=== PATIENT | male | born 1960 | race Caucasian/White ===

== ENCOUNTER 2021-05-30 12:19 | Outpatient (CLI) | payer MEDICARE, MEDICAID, SELFPAY ==
[2021-05-30 12:58] LABS: Ammonia 119 umol/L (16-60)
[2021-05-30 13:15] LABS: Alanine Aminotransferase 17 U/L (0-41); Albumin Level 2.5 g/dL (3.5-5.2); Alkaline Phosphatase 101 IU/L (40-130); Anion Gap 18.5 (5-19); Aspartate Amino Transferase 27 U/L (0-40); Blood Urea Nitrogen 68 mg/dL (8-23); Calcium 8.3 mg/dL (8.5-10.5); Carbon Dioxide 23 mmol/L (22-29); Chloride 97 mmol/L (98-107); Globulin 3.6 g/dL (1.3-4.6); Glomerular Filtration Rate 33.9 mL/min (90-130); Glucose 137 mg/dL (65-115); Osmolality Calculated 302 mOsm/kg (285-295); Potassium 3.5 mmol/L (3.5-5.1); Sodium 135 mmol/L (136-145); Total Bilirubin 3.2 mg/dL (0.15-1.2); Total Protein 6.1 g/dL (6.6-8.7)
== END 2021-05-30 12:20 | disposition home or self-care (01) ==
LOC: LAB 12:24
PROVIDERS: PCP Internal Medicine; Visit Provider Internal Medicine
DX: K75.81 Nonalcoholic steatohepatitis (NASH) (principal)
CPT/HCPCS: 80053; 82140

== ENCOUNTER 2021-05-31 23:05 | Inpatient (IN) | payer MEDICARE, MEDICAID, SELFPAY ==
--- NOTE | 2021-05-31 23:09 | XRR_ITS ---
PROCEDURE INFORMATION: Exam: XR Chest Exam date and time: 05/31/2021 11:09 PM Age: 61 years old Clinical indication: Other: Possible stroke; Additional info: Severe ARMENTA, amirah of left hand, possible stroke, AMS TECHNIQUE: Imaging protocol: XR of the chest. Views: 1 view. COMPARISON: No relevant prior studies available. FINDINGS: Lungs: Bibasilar atelectasis is appreciated. Pleural spaces: A small left pleural effusion is noted. No pneumothorax is seen. Heart/Mediastinum: The heart is normal in size. Changes of CABG are noted. Diaphragm: The right hemidiaphragm is prominently elevated, possibly paralyzed. Bones/joints: Unremarkable. XR/XR chest 1V portable [id number] IMPRESSION: 1. Bibasilar atelectasis and small left pleural effusion. 2. Prominent right hemidiaphragm elevation raise the possibility of paralysis. Radiation Dose CTDIVOL = (mGy): DLP = (mGy-cm)
--- NOTE | 2021-05-31 23:09 | CTR_ITS ---
PROCEDURE INFORMATION: Exam: CT Head Without Contrast Exam date and time: 05/31/2021 11:09 PM Age: 61 years old Clinical indication: Pain; Altered mental status/memory loss; Headache; Additional info: Severe ARMENTA, AMS, seizure activity, amirah of left hand. TECHNIQUE: Imaging protocol: Computed tomography of the head without contrast. Radiation optimization: All CT scans at this facility use at least one of these dose optimization techniques: automated exposure control; mA and/or kV adjustment per patient size (includes targeted exams where dose is matched to clinical indication); or iterative reconstruction. Other technique: STROKE PROTOCOL was implemented. COMPARISON: No relevant prior studies available. RADIATION DOSE METRICS: Total DLP (mGy-cm): 848.67 FINDINGS: Brain: No hemorrhage or evidence of acute infarction. No mass effect. Cerebral ventricles: No ventriculomegaly. Paranasal sinuses: Visualized sinuses are unremarkable. No fluid levels. Mastoid air cells: Visualized mastoid air cells are well aerated. Bones/joints: Unremarkable. No acute fracture. Soft tissues: Unremarkable. CT/CT head wo con* [id number] IMPRESSION: No acute intracranial abnormality. ASSESSMENT: ASPECTS ([place] Stroke Program Early CT Score) is 10. Radiation Dose CTDIVOL = (mGy): DLP = 848.67 (mGy-cm)
--- NOTE | 2021-05-31 23:10 | ECG_ITS ---
[facility] Test Date: 2021-06-01 Pat Name: Beck Gloria Department: Room: Gender: Male Expeller Operator: : 1960 Requested By: Pj Pardo Order Number: [id number] Reading MD: Norma Payton M.D. Measurements Intervals [place] Rate: 67 P: 31 FL: 167 QRS: -8 QRSD: 118 T: 0 QT: 258 QTc: 273 Interpretive Statements SINUS RHYTHM MODERATE INTRAVENTRICULAR CONDUCTION DELAY [110+ ms QRS DURATION] NONSPECIFIC ST-T-WAVE ABNORMALITY No previous ECG available for comparison Electronically Signed On 06-01-2021 22:00:28 WASTEWATER ENGINEER by Norma Payton M.D. [email or web address] [employer] mentor [id number]
[2021-05-31 23:14] VITALS: BP 90/54; PULSE 61; RESP 6; TEMP 34.7; O2SAT 89
[2021-05-31 23:22] LABS: Glucose Point of Care 146 mg/dL (70-110)
--- NOTE | 2021-05-31 23:35 | ED_ITS ---
HPI - General Adult General: Chief complaint: General Medical Stated complaint: STROKE LIKE SX VS SEIZURES Time Seen by Provider: 05/31/21 23:09 Source: EMS Mode of arrival: EMS Limitations: altered mental status History of Present Illness: HPI narrative: 61-year-old male who is here from assisted with EMS. Per EMS starting at 10:00 patient complained of a headache then became unresponsive had a seizure at the assisted. Patient also had another seizure in route with EMS and was given 1 mg Ativan. Patient appears to be posturing eyes are looking up and to the right at this time. He is unresponsive will not follow any commands. No no known injuries. Per assisted he has a history of [place] and has been declining rapidly the last few months. 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 Essential (primary) hypertension Gout Unspecified protein-calorie malnutrition Surgical History (Updated 05/30/21 @ 15:58 by Lilian Castro APRN) History of coronary artery bypass graft Physical Exam Const: COMMON NORMALS: apparent distress and negative for patient oriented x3 GENERAL APPEARANCE: ill appearing HENMT: COMMON NORMALS: normocephalic and atraumatic HEAD & SCALP: normocephalic and atraumatic Eye: OTHER: Gazes upward pupils are both the same and responsive to light Neck/C-Spine: COMMON NORMALS: full ROM and supple Chest: COMMONS NORMALS: normal inspection of the chest and normal palpation of entire chest wall Resp: COMMON NORMALS: normal respiratory effort, No retractions, No use of accessory muscles and clear to auscultation bilaterally AUSCULTATION: clear to auscultation bilaterally Cardio: COMMON NORMALS: regular rate, regular rhythm and No murmurs present (Cardio) RATE: regular rate RHYTHM: regular rhythm GI: COMMON NORMALS: Normal to inspection, nondistended, normoactive bowel sounds present, Soft to palpation, non-tender and no masses PALPATION: Yes Soft to palpation Extremity: COMMON NORMALS: normal to inspection and full ROM Neuro: COMMON NORMALS: negative for patient oriented x3 and negative for moves all extremities Psych: COMMON NORMALS: negative for mental status grossly normal and negative for Normal thought process present THOUGHT PROCESS: abnormal Skin: COMMON NORMALS: no rashes or lesions noted and no wounds GENERAL SKIN EXAM: no rashes or lesions noted Procedures Intubation sedative: Etomidate Mg Given: 20 paralytic: Vecuronium Mg Given: 10 Laryngoscope: Nasir ET Tube Size: 8 ET Tube Uncuffed: No Tube Secured Depth (cm): 24 Tube Secured Location: lips Tube Placement Confirmation: visualized tube passing through cords, equal breath sounds bilaterally, no breath sounds over epigastrium and confirmation by capnometry Patient Tolerated Procedure: well Intubation Complications: none Course Vital Signs: Vital signs: Vital Signs Temperature 93.7 F L 06/01/21 03:09 Pulse Rate 67 06/01/21 03:09 Respiratory Rate 22 H 06/01/21 03:09 Blood Pressure 75/40 06/01/21 03:09 Pulse Oximetry 100 06/01/21 03:09 MDM - General Adult MDM Narrative: Medical decision making narrative: Patient presents with hepatic encephalopathy along with seizures anemia and elevated lactate. Patient's been hypotensive here as well with anemia. No sign of active bleeding rectal exam is negative. I spoke to patient's family daughter at length. She states that he had actually been talking about end-of-life with her and stated that he would not want to be kept alive on machines. She did want him intubated for overnight the patient is now DNR. We will give him fluids all blood products she refused a central line or pressors. She states that she wants to talk to her family tomorrow but she stated that if he is not improving that he would not want to be like this and she would likely make him comfort care tomorrow. Patient does appear to have end-stage liver disease with elevated INR at this point. Spoke to hospitalist will admit at this time. Lab Data: Labs: Lab Results 05/31/21 05/31/21 05/31/21 23:19 23:25 23:49 WBC 10.6 10^3/uL H 10 ^3/uL (4.0-10.0) RBC 1.79 10^6/uL L 10 ^6/uL (4.1-5.3) Hgb 6.7 g/dL L g/dL (11.7-16.6) Hct 20.4 % L* % (42.0-52.0) MCV 114.0 fl H fl (80-94) MCH 37.4 pg H pg (28.0-34.0) MCHC 32.8 g/dL g/dL (30.0-36.0) RDW 15.0 % % (12.1-15.1) Plt Count 121 10^3/cmm L 10 ^3/cmm (130-400) MPV 10.8 fL H fL (7.4-10.4) Neut % (Auto) 79.1 % % Lymph % (Auto) 14.9 % % [place] % (Auto) 5.1 % % Eos % (Auto) 0.3 % % Baso % (Auto) 0.2 % % Neut # (Auto) 8.37 10^3/uL H 10 ^3/uL (1.8-7.7) Lymph # (Auto) 1.6 10^3/uL 10^3/ uL (0.8-4.8) [place] # (Auto) 0.5 10^3/uL 10^3/ uL (0.2-0.9) Eos # (Auto) 0.0 10^3/uL 10^3/ uL (0.0-0.8) Baso # (Auto) 0.0 10^3/uL 10^3/ uL (0.0-0.1) Nucleated RBC % (a uto) 0 % % Nucleated RBCs # 0.0 /100WBC /100W BC PT INR Specimen Type Arterial Sample Site Radial, left ABG pH 7.52 H (7.35-7.45) ABG pCO2 30.0 mmHg L mmHg (35-45) ABG pO2 59.9 mmHg L mmHg (80.0-100.0) ABG HCO3 24.3 mmol/L mmol/ L (22-26) ABG Base Excess 1.4 mmol/L mmol/L (-2.0-2.0) Lamberto Test Pos Hematocrit 21.6 % L % (42-52) O2 Delivery Device Nc O2 Liters/Min 3.0 % % Foil Stamp Operator ID [email or web address] Sodium Potassium Chloride Carbon Dioxide Anion Gap BUN Creatinine GFR Calculation Glucose POC Glucose 146 mg/dL H mg/dL (70-110) Calculated Osmolal ity Lactate Calcium Total Bilirubin AST ALT Alkaline Phosphata se Ammonia Troponin T Baselin e Troponin T 120 Min [place] Troponin T Total Protein Albumin Globulin Urine Color Urine Appearance Urine pH Ur Specific Gravit y Urine Protein Urine Glucose (UA) Urine Ketones Urine Blood Urine Nitrate Urine Bilirubin Urine Urobilinogen Ur Leukocyte Chapis ase Blood Type Rho(D) Type Antibody Screen Crossmatch 05/31/21 05/31/21 05/31/21 23:49 23:49 23:49 WBC RBC Hgb Hct MCV MCH MCHC RDW Plt Count MPV Neut % (Auto) Lymph % (Auto) [place] % (Auto) Eos % (Auto) Baso % (Auto) Neut # (Auto) Lymph # (Auto) [place] # (Auto) Eos # (Auto) Baso # (Auto) Nucleated RBC % (a uto) Nucleated RBCs # PT 25.50 SECONDS H S ECONDS (12.1-14.9) INR 2.27 H (0.8-1.2) Specimen Type Sample Site ABG pH ABG pCO2 ABG pO2 ABG HCO3 ABG Base Excess Lamberto Test Hematocrit O2 Delivery Device O2 Liters/Min Foil Stamp Operator ID Sodium 136 mmol/L mmol/L (136-145) Potassium 4.4 mmol/L mmol/L (3.5-5.1) Chloride 99 mmol/L mmol/L (98-107) Carbon Dioxide 20 mmol/L L mmol/ L (22-29) Anion Gap 21.4 H (5-19) BUN 83 mg/dL H* mg/dL (8-23) Creatinine 2.5 mg/dL H mg/dL (0.7-1.2) GFR Calculation 26.2 mL/min L mL/ min (90-130) Glucose 131 mg/dL H mg/dL (65-115) POC Glucose Calculated Osmolal ity 309 mOsm/kg H mOs m/kg (285-295) Lactate Calcium 7.7 mg/dL L mg/dL (8.5-10.5) Total Bilirubin 3.6 mg/dL H mg/dL (0.15-1.2) AST 20 U/L U/L (0-40) ALT 14 U/L U/L (0-41) Alkaline Phosphata se 63 IU/L IU/L (40-130) Ammonia Troponin T Baselin e 54 ng/L H ng/L (0-15) Troponin T 120 Min [place] Troponin T Total Protein 5.0 g/dL L g/dL (6.6-8.7) Albumin 2.2 g/dL L g/dL (3.5-5.2) Globulin 2.8 g/dL g/dL (1.3-4.6) Urine Color Urine Appearance Urine pH Ur Specific Gravit y Urine Protein Urine Glucose (UA) Urine Ketones Urine Blood Urine Nitrate Urine Bilirubin Urine Urobilinogen Ur Leukocyte Chapis ase Blood Type Rho(D) Type Antibody Screen Crossmatch 06/01/21 06/01/21 06/01/21 01:05 01:18 01:26 WBC RBC Hgb Hct MCV MCH MCHC RDW Plt Count MPV Neut % (Auto) Lymph % (Auto) [place] % (Auto) Eos % (Auto) Baso % (Auto) Neut # (Auto) Lymph # (Auto) [place] # (Auto) Eos # (Auto) Baso # (Auto) Nucleated RBC % (a uto) Nucleated RBCs # PT INR Specimen Type Sample Site ABG pH ABG pCO2 ABG pO2 ABG HCO3 ABG Base Excess [place] Test Hematocrit O2 Delivery Device O2 Liters/Min Foil Stamp Operator ID Sodium Potassium Chloride Carbon Dioxide Anion Gap BUN Creatinine GFR Calculation Glucose POC Glucose Calculated Osmolal ity Lactate 5.4 mmol/L H* mmo l/L (0.5-2.2) Calcium Total Bilirubin AST ALT Alkaline Phosphata se Ammonia Troponin T Baselin e Troponin T 120 Min [place] Troponin T Total Protein Albumin Globulin Urine Color Yellow (Yellow) Urine Appearance Clear (CLEAR) Urine pH 5 (5-7) Ur Specific Gravit y 1.015 (1.005-1.030) Urine Protein Neg (Negative) Urine Glucose (UA) Norm (Normal) Urine Ketones Negative (Negative) Urine Blood Neg (Negative) Urine Nitrate Negative (Negative) Urine Bilirubin 1+ H (Negative) Urine Urobilinogen 1 mg/dL H mg/dL (Negative) Ur Leukocyte Chap[place] ase Negative (Negative) Blood Type O Positive Rho(D) Type Positive Antibody Screen Negative Crossmatch See Detail 06/01/21 06/01/21 01:26 01:26 WBC RBC Hgb Hct MCV MCH MCHC RDW Plt Count MPV Neut % (Auto) Lymph % (Auto) [place] % (Auto) Eos % (Auto) Baso % (Auto) Neut # (Auto) Lymph # (Auto) [place] # (Auto) Eos # (Auto) Baso # (Auto) Nucleated RBC % (a uto) Nucleated RBCs # PT INR Specimen Type Sample Site ABG pH ABG pCO2 ABG pO2 ABG HCO3 ABG Base Excess [place] Test Hematocrit O2 Delivery Device O2 Liters/Min Foil Stamp Operator ID Sodium Potassium Chloride Carbon Dioxide Anion Gap BUN Creatinine GFR Calculation Glucose POC Glucose Calculated Osmolal ity Lactate Calcium Total Bilirubin AST ALT Alkaline Phosphata se Ammonia 406 umol/L H umol /L (16-60) Troponin T Baselin e Troponin T 120 Min [place] 51.62 ng/L H ng/L (0-15) Delta Troponin T -2.38 ABS# L ABS# (0-10) Total Protein Albumin Globulin Urine Color Urine Appearance Urine pH Ur Specific Gravit y Urine Protein Urine Glucose (UA) Urine Ketones Urine Blood Urine Nitrate Urine Bilirubin Urine Urobilinogen Ur Leukocyte Chap[place] ase Blood Type Rho(D) Type Antibody Screen Crossmatch Imaging Data^: CT Head: Radiologist's impression: [address] [address] [address] Scan Report Signed Patient: Beck Gloria Unit #: [id number] : 1960 Age/Sex: 61 / M ADM Date: 05/31/21 Loc: ER Room/Bed: Attending Dr: Ordering Provider/Ordering MD: Pj Pardo MD Date of Service: 05/31/21 Procedure(s): CT head wo con* [id number] Accession Number(s): [id number] Report Number: [id number] PROCEDURE INFORMATION: Exam: CT Head Without Contrast Exam date and time: 05/31/2021 11:09 PM Age: 61 years old Clinical indication: Pain; Altered mental status/memory loss; Headache; Additional info: Severe ARMENTA, AMS, seizure activity, amirah of left hand. TECHNIQUE: Imaging protocol: Computed tomography of the head without contrast. Radiation optimization: All CT scans at this facility use at least one of these dose optimization techniques: automated exposure control; mA and/or kV adjustment per patient size (includes targeted exams where dose is matched to clinical indication); or iterative reconstruction. Other technique: STROKE PROTOCOL was implemented. COMPARISON: No relevant prior studies available. RADIATION DOSE METRICS: Total DLP (mGy-cm): 848.67 FINDINGS: Brain: No hemorrhage or evidence of acute infarction. No mass effect. Cerebral ventricles: No ventriculomegaly. Paranasal sinuses: Visualized sinuses are unremarkable. No fluid levels. Mastoid air cells: Visualized mastoid air cells are well aerated. Bones/joints: Unremarkable. No acute fracture. Soft tissues: Unremarkable. CT/CT head wo con* [id number] IMPRESSION: No acute intracranial abnormality. ASSESSMENT: ASPECTS ([place] Stroke Program Early CT Score) is 10. Radiation Dose CTDIVOL = (mGy): DLP = 848.67 (mGy-cm) Dictated By: Vlad Luz MD Signed By: Vlad Luz MD Signed Date/Time: 05/31/212323 DD/ 08 CXR: Radiologist's impression: [address] [place] [address] XRay Report Signed Patient: Beck Gloria Unit #: [id number] : 1960 Age/Sex: 61 / M ADM Date: 05/31/21 Loc: ER Room/Bed: Attending Dr: Ordering Provider/Ordering MD: Pj Pardo MD Date of Service: 05/31/21 Procedure(s): XR chest 1V portable [id number] Accession Number(s): [id number] Report Number: [id number] PROCEDURE INFORMATION: Exam: XR Chest Exam date and time: 05/31/2021 11:09 PM Age: 61 years old Clinical indication: Other: Possible stroke; Additional info: Severe ARMENTA, amirah of left hand, possible stroke, AMS TECHNIQUE: Imaging protocol: XR of the chest. Views: 1 view. COMPARISON: No relevant prior studies available. FINDINGS: Lungs: Bibasilar atelectasis is appreciated. Pleural spaces: A small left pleural effusion is noted. No pneumothorax is seen. Heart/Mediastinum: The heart is normal in size. Changes of CABG are noted. Diaphragm: The right hemidiaphragm is prominently elevated, possibly paralyzed. Bones/joints: Unremarkable. XR/XR chest 1V portable [id number] IMPRESSION: 1. Bibasilar atelectasis and small left pleural effusion. 2. Prominent right hemidiaphragm elevation raise the possibility of paralysis. Radiation Dose CTDIVOL = (mGy): DLP = (mGy-cm) Dictated By: Vlad Luz MD Signed By: Vlad Luz MD Signed Date/Time: 05/31/212330 DD/ 08 CT Abd/Pel: Attestation: I personally reviewed and interpreted this imaging study as follows: Radiologist's impression: [facility] [place] [address] CT Scan Report Signed Patient: Beck Gloria Unit #: [id number] : 1960 Age/Sex: 61 / M ADM Date: 05/31/21 Loc: ER Room/Bed: Attending Dr: Ordering Provider/Ordering MD: Pj Pardo MD Date of Service: 06/01/21 Procedure(s): CT abdomen pelvis con [id number] Accession Number(s): [id number] Report Number: [id number] PROCEDURE INFORMATION: Exam: CT Abdomen And Pelvis Without Contrast Exam date and time: 06/01/2021 12:38 AM Age: 61 years old Clinical indication: Abnormal findings; Abnormal lab test; Abnormal kidney function lab tests and other: Decreased hemoglobin/hematocrit; Prior surgery; Surgery type: Cabg. ; Patient HX: Arrived unresponsive to er. Elevated bun and creatinine. Decreased hemoglobin and hematocrit. History of cirrhosis. ; Additional info: Abd pain TECHNIQUE: Imaging protocol: Computed tomography of the abdomen and pelvis without contrast. Radiation optimization: All CT scans at this facility use at least one of these dose optimization techniques: automated exposure control; mA and/or kV adjustment per patient size (includes targeted exams where dose is matched to clinical indication); or iterative reconstruction. COMPARISON: CR (CHEST, ) 05/31/2021 11:54 PM RADIATION DOSE METRICS: Total DLP (mGy-cm): 1512.06 FINDINGS: Tubes, catheters and devices: A catheter is present in the urinary bladder. Pleural spaces: A small chronic left pleural effusion is noted. Left basilar atelectasis is also seen. Heart: The heart is normal in size. Coronary artery calcifications are appreciated. Diaphragm: The right hemidiaphragm is elevated. Liver: The liver is cirrhotic. No parenchymal lesion is visualized. Gallbladder and bile ducts: Normal. No calcified stones. No ductal dilation. Pancreas: Normal. No ductal dilation. Spleen: Normal. No splenomegaly. Adrenal glands: Normal. No mass. Kidneys and ureters: Normal. No hydronephrosis. Stomach and bowel: A large amount of stool is present in the colon. No intestinal obstruction. Appendix: The appendix is normal. Intraperitoneal space: A moderate amount of ascites is present. Vasculature: Unremarkable. No abdominal aortic aneurysm. Lymph nodes: Unremarkable. No enlarged lymph nodes. Urinary bladder: Unremarkable as visualized. Reproductive: Unremarkable as visualized. Bones/joints: Dqvo-eo-zkbafjny degenerative changes are present in the visualized spine. No acute fracture. Soft tissues: Mild to moderate anasarca is noted. CT/CT abdomen pelvis wo con [id number] IMPRESSION: 1. Hepatic cirrhosis. Moderate volume ascites and mild to moderate anasarca are appreciated. 2. Constipation. No intestinal obstruction. 3. Small chronic left pleural effusion. Radiation Dose CTDIVOL = (mGy): DLP = 1512.06 (mGy-cm) Dictated By: Vlad Luz MD Signed By: Vlad Luz MD Signed Date/Time: 06/01/21206 DD/ EKG Data^: EKG 1: Attestation: I personally reviewed and interpreted this EKG as follows: EKG interpretation date: 06/01/21 EKG interpretation time: 00:06 Interpretation: nsr hr [address] or t wave abnormalities qrs 118 qtc 273 Computer generated interpretation: Head CT 05/31/21 23:09 IMPRESSION: No acute intracranial abnormality. ASSESSMENT: ASPECTS ([place] Stroke Program Early CT Score) is 10. Radiation Dose CTDIVOL = (mGy): DLP = 848.67 (mGy-cm) Chest X-Ray 05/31/21 23:50 IMPRESSION: An ETT has been placed terminating 4 cm above the robin. No other significant change. Radiation Dose CTDIVOL = (mGy): DLP = (mGy-cm) Abdomen/Pelvis CT 06/01/21 00:38 IMPRESSION: 1. Hepatic cirrhosis. Moderate volume ascites and mild to moderate anasarca are appreciated. 2. Constipation. No intestinal obstruction. 3. Small chronic left pleural effusion. Radiation Dose CTDIVOL = (mGy): DLP = 1512.06 (mGy-cm) Critical Care Time Critical Care Time: Critical Care Time: Yes Total Critical Care Time: 35 Attestation: The high probability of a clinically significant, sudden or life threatening deterioration of the patient's [] system(s) required my full and direct attention, intervention and personal management. The critical care time is as shown. 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
[2021-05-31 23:36] LABS: ABG PH Result 7.52 (7.35-7.45); Arterial Blood Gas Hematocrit 21.6 % (42-52); Base Excess ABG 1.4 mmol/L (-2.0-2.0); Blood Gas Allen Test Pos; Blood Gas Sample Site Radial, left; Blood Gas Sample Type Arterial; HCO3 ABG 24.3 mmol/L (22-26); Oxygen Device NC; PO2 ABG 59.9 mmHg (80.0-100.0)
[2021-05-31 23:50] VITALS: PULSE 68; RESP 20; O2SAT 100
--- NOTE | 2021-05-31 23:50 | XRR_ITS ---
PROCEDURE INFORMATION: Exam: XR Chest Exam date and time: 05/31/2021 11:50 PM Age: 61 years old Clinical indication: Device placement; Ett placement (vent status); Additional info: Post intubation TECHNIQUE: Imaging protocol: XR of the chest. Views: 1 view. COMPARISON: CR XR chest 1V portable [id number] 05/31/2021 11:21 PM XR/XR chest 1V portable [id number] IMPRESSION: An ETT has been placed terminating 4 cm above the robin. No other significant change. Radiation Dose CTDIVOL = (mGy): DLP = (mGy-cm)
[2021-06-01] VITALS (77 sets, daily range): BP systolic 47–92; BP diastolic 22–48; PULSE 0–117; RESP 0–43; TEMP 34.3–37.8; O2SAT 66–100
[2021-06-01] MEDS: vecuronium 10 mg SDV IVP (00:01)
[2021-06-01 00:14] LABS: Basophils % 0.2 %; Eosinophils % 0.3 %; Hemoglobin 6.7 g/dL (11.7-16.6); Lymphocytes # 1.6 10^3/uL (0.8-4.8); Lymphocytes % 14.9 %; Mean Corpuscular HGB Conc 32.8 g/dL (30.0-36.0); Mean Corpuscular Hemoglobin 37.4 pg (28.0-34.0); Mean Platelet Volume 10.8 fL (7.4-10.4); Monocytes # 0.5 10^3/uL (0.2-0.9); Monocytes % 5.1 %; Neutrophils # 8.37 10^3/uL (1.8-7.7); Neutrophils % 79.1 %; Nucleated Red Blood Cells % 0 %; Platelet Count 121 10^3/cmm (130-400); Red Blood Count 1.79 10^6/uL (4.1-5.3); White Blood Count 10.6 10^3/uL (4.0-10.0)
[2021-06-01 00:23] LABS: INR 2.27 (0.8-1.2)
[2021-06-01 00:25] LABS: Hematocrit 20.4 % (42.0-52.0)
[2021-06-01 00:30] LABS: Alanine Aminotransferase 14 U/L (0-41); Albumin Level 2.2 g/dL (3.5-5.2); Alkaline Phosphatase 63 IU/L (40-130); Anion Gap 21.4 (5-19); Aspartate Amino Transferase 20 U/L (0-40); Calcium 7.7 mg/dL (8.5-10.5); Carbon Dioxide 20 mmol/L (22-29); Chloride 99 mmol/L (98-107); Globulin 2.8 g/dL (1.3-4.6); Glomerular Filtration Rate 26.2 mL/min (90-130); Glucose 131 mg/dL (65-115); Osmolality Calculated 309 mOsm/kg (285-295); Potassium 4.4 mmol/L (3.5-5.1); Sodium 136 mmol/L (136-145); Total Bilirubin 3.6 mg/dL (0.15-1.2)
[2021-06-01 00:35] LABS: Troponin(5th) Baseline 54 ng/L (0-15)
[2021-06-01] MEDS: sodium chloride 0.9% 1,000 ML 999 ML IV ×4 (00:35→02:53)
[2021-06-01 00:36] LABS: Blood Urea Nitrogen 83 mg/dL (8-23)
--- NOTE | 2021-06-01 00:38 | CTR_ITS ---
PROCEDURE INFORMATION: Exam: CT Abdomen And Pelvis Without Contrast Exam date and time: 06/01/2021 12:38 AM Age: 61 years old Clinical indication: Abnormal findings; Abnormal lab test; Abnormal kidney function lab tests and other: Decreased hemoglobin/hematocrit; Prior surgery; Surgery type: Cabg. ; Patient HX: Arrived unresponsive to er. Elevated bun and creatinine. Decreased hemoglobin and hematocrit. History of cirrhosis. ; Additional info: Abd pain TECHNIQUE: Imaging protocol: Computed tomography of the abdomen and pelvis without contrast. Radiation optimization: All CT scans at this facility use at least one of these dose optimization techniques: automated exposure control; mA and/or kV adjustment per patient size (includes targeted exams where dose is matched to clinical indication); or iterative reconstruction. COMPARISON: CR (CHEST, ) 05/31/2021 11:54 PM RADIATION DOSE METRICS: Total DLP (mGy-cm): 1512.06 FINDINGS: Tubes, catheters and devices: A catheter is present in the urinary bladder. Pleural spaces: A small chronic left pleural effusion is noted. Left basilar atelectasis is also seen. Heart: The heart is normal in size. Coronary artery calcifications are appreciated. Diaphragm: The right hemidiaphragm is elevated. Liver: The liver is cirrhotic. No parenchymal lesion is visualized. Gallbladder and bile ducts: Normal. No calcified stones. No ductal dilation. Pancreas: Normal. No ductal dilation. Spleen: Normal. No splenomegaly. Adrenal glands: Normal. No mass. Kidneys and ureters: Normal. No hydronephrosis. Stomach and bowel: A large amount of stool is present in the colon. No intestinal obstruction. Appendix: The appendix is normal. Intraperitoneal space: A moderate amount of ascites is present. Vasculature: Unremarkable. No abdominal aortic aneurysm. Lymph nodes: Unremarkable. No enlarged lymph nodes. Urinary bladder: Unremarkable as visualized. Reproductive: Unremarkable as visualized. Bones/joints: Uugi-aa-liiyagjw degenerative changes are present in the visualized spine. No acute fracture. Soft tissues: Mild to moderate anasarca is noted. CT/CT abdomen pelvis con [id number] IMPRESSION: 1. Hepatic cirrhosis. Moderate volume ascites and mild to moderate anasarca are appreciated. 2. Constipation. No intestinal obstruction. 3. Small chronic left pleural effusion. Radiation Dose CTDIVOL = (mGy): DLP = 1512.06 (mGy-cm)
--- NOTE | 2021-06-01 01:10 | ECG_ITS ---
[facility] Test Date: 2021-06-01 Pat Name: Beck Gloria Department: Room: ICU11 Gender: Male Varnish Finisher: : 1960 Requested By: Pj Pardo Order Number: [id number] Patricio MD: Norma Payton M.D. Measurements Intervals [place] Rate: 74 P: DC: QRS: -22 QRSD: 102 T: -56 QT: 450 QTc: 500 Interpretive Statements Sinus rhythm BORDERLINE LEFT AXIS DEVIATION [QRS AXIS < -20] ST DEVIATION AND MODERATE T-WAVE ABNORMALITY, CONSIDER INFERIOR ISCHEMIA [-0.1+ mV T-WAVE IN II/aVF] Compared to ECG 06/01/2021 00:06:13 Supraventricular rhythm now present Possible ischemia now present Sinus rhythm no longer present Intraventricular conduction delay no longer present T-wave abnormality still present Heavy baseline artifact, need to repeat Electronically Signed On 06-01-2021 22:12:41 REFUSE COLLECTOR SUPERVISOR by Norma Payton M.D. [email or web address] [email or web address] Within Reach/store/[id number]
[2021-06-01] MEDS: propofol 1,000 MG/100 ML INJ 3.43 MG IV (01:34)
[2021-06-01 01:41] LABS: Add Urine Microscopic? NO; Charge for UA Resulting for Rev
[2021-06-01 01:48] LABS: Bilirubin Urine 1+ (Negative); Blood Urine Neg (Negative); Glucose Urine UA Norm (Normal); Ketones Urine Negative (Negative); Leukocyte Esterase Urine Negative (Negative); Nitrate Urine Negative (Negative); Protein Urine Neg (Negative); Specific Gravity, Urine 1.015 (1.005-1.030); Urine Appearance Clear (CLEAR); Urine Color Yellow (Yellow); Urobilinogen Urine 1 mg/dL (Negative); pH Urine 5 (5-7)
[2021-06-01 01:50] LABS: Troponin 5 2HR 51.62 ng/L (0-15)
[2021-06-01 01:53] LABS: Ammonia 406 umol/L (16-60)
[2021-06-01 01:58] LABS: Troponin 5 2HR Delta -2.38 ABS# (0-10)
[2021-06-01 01:59] LABS: Lactate (Lactic Acid level) 5.4 mmol/L (0.5-2.2)
[2021-06-01] MEDS: piperacillin-tazobactam 3.375 GM in sodium chloride 0.9% (plus) 50 ML IV (02:51)
[2021-06-01] MEDS: vancomycin 1,000 MG in sodium chloride 0.9% 250 ML 250 MG IV (03:33)
--- NOTE | 2021-06-01 04:29 | PC.NURSE ---
It was determined to intubate the pt. Etomidate was given at 2346 Vecuronium was given at 2346 Intubation at 2348 at 25 at the lip. Confirmed by xray at 0002. Fentanyl started at 25 mcg 0054.
--- NOTE | 2021-06-01 04:45 | PC.NURSE ---
Arrived from ED via gurney, transferred to bed via lift sheet, no response to stimuli, abdominal breathing, yellow skin color, eyes sunken in
--- NOTE | 2021-06-01 04:48 | PC.NURSE ---
BP 79/42, no orders in SEP, attempted to contact dr. Fuchs
--- NOTE | 2021-06-01 04:59 | PC.NURSE ---
unable to obtain temp, rectal probe inserted, temp 94.8
--- NOTE | 2021-06-01 05:03 | PC.NURSE ---
77/39, dr. muñiz contacted, no n.o.
--- NOTE | 2021-06-01 05:10 | ECG_ITS ---
[facility] Test Date: 2021-06-01 Pat Name: Beck Gloria Department: Room: ICU11 Gender: Male Equal Opportunity Representative: : 1960 Requested By: Pj Pardo Order Number: [id number] Reading MD: Norma Payton M.D. Measurements Intervals [place] Rate: 108 P: NM: QRS: 163 QRSD: 73 T: 51 QT: 268 QTc: 360 Interpretive Statements Regular supraventricular rhythm RIGHT AXIS DEVIATION [QRS AXIS > 100] Heavy baseline artifact Defective EKG Need to repeat Electronically Signed On 06-01-2021 22:15:03 METAL WELDER by Norma Payton M.D. [email or web address] [employer].AVOS Systemsmississippi baptist medical centerConcernTrakjoint township district memorial hospitalLocai/store/OM/[id number]
--- NOTE | 2021-06-01 05:10 | PC.NURSE ---
GCS 3, no response to pain or verbal stimuli, on ventilator, MTS notifed
--- NOTE | 2021-06-01 05:51 | PC.NURSE ---
Dr. Fuchs notifed this nurse family does not want anything further and will consider comfort care. gave v.o. not to administer 2nd unit of blood once 1st unit finishes
--- NOTE | 2021-06-01 05:59 | PC.NURSE ---
Cathy Walker from [facility] notifed this nurse patient would most likely be ruled out for cardiac donation but a hospital sales representative will be sent onsite for further evaluation. staff to notify MTS if patient passes away or if family decides to move to comfort care
--- NOTE | 2021-06-01 06:20 | PC.NURSE ---
Dr. Fuchs ordered to cancel all labs
--- NOTE | 2021-06-01 06:41 | PM.HP ---
Providers/Chief Complaint Admitting Physician: Ingrid Fuchs MD Chief Complaint: STROKE LIKE SX VS SEIZURES History of Present Illness History is obtained exclusively by talking to patient's , patient is unable to participate. Beck Gloria is a 61 year old male with a past medical history of SPRINGER, CHF, CAD status post 5 stents, recent prolonged admission at [facility] for approximately 1 month, discharged on 05/20/2021 to residential. Reportedly patient was admitted at [facility] for a new mass that was detected behind the right knee and was increasing in size. Per he underwent arthroscopic surgery, a mass was resected, details of this is unknown. She states this was likely an abscess/infected collection for which patient was on a prolonged course of antibiotics, unknown which ones. He is currently on cefdinir 300 mg p.o. twice daily. Hospital course had been complicated by hepatic encephalopathy, ascites for which patient needed paracentesis, acute kidney injury and anemia. He was brought to the emergency room today for from the residential when at around 10:00 patient started to complain of headache and then became unresponsive. He also had a seizure at the residential and then again while in route to the hospital for which EMS gave him 1 mg of Ativan. He was noted to be posturing upon arrival at the emergency room, was unresponsive not following any commands. He was also noted to be hypotensive with blood pressure in the 60-70 systolic range. Anemia was noted with hemoglobin 6.7. He was intubated due to low GCS and for airway protection. Significant lab abnormalities include anemia with hemoglobin 6.7, acute kidney injury with creatinine at 2.5, lactic acidosis at 5.4, elevated T bili of 3.6, ammonia levels of 400 troponin leak with baseline troponin of 54, INR of 2.27. CT head without acute intracranial abnormality. CT of the abdomen and pelvis with hepatic cirrhosis, moderate volume ascites and anasarca, no signs of intestinal obstruction, chronic left pleural effusion. Review of Systems General: Reports: ROS unobtainable due to endotracheal tube Medications/Allergies Home Medications Medication Instructions Recorded Confirmed Last Taken Type allopurinol 300 mg tablet 150 mg PO DAILY 05/24/21 05/31/21 Unknown History aspirin 81 mg chewable tablet 81 mg PO DAILY 05/24/21 05/31/21 Unknown History bumetanide 1 mg tablet 1 mg PO BID 05/24/21 05/31/21 Unknown History cefdinir 300 mg capsule 300 mg PO BID 05/24/21 05/31/21 Unknown History citalopram 10 mg tablet 10 mg PO .daily at bedtime tab 05/24/21 05/31/21 Unknown History clopidogrel 75 mg tablet 75 mg PO DAILY 05/24/21 05/31/21 Unknown History cyanocobalamin (vitamin B-12) 1,000 mcg IM .once every 2 weeks 05/24/21 05/31/21 Unknown History 1,000 mcg/mL injection solution ml cyclobenzaprine 10 mg tablet 5 mg PO TID PRN tab 05/24/21 05/31/21 Unknown History magnesium oxide 400 mg PO BID 05/24/21 05/31/21 Unknown History metoprolol tartrate 25 mg tablet 12.5 mg PO BID 05/24/21 05/31/21 Unknown History tamsulosin 0.4 mg capsule 0.4 mg PO DAILY 05/24/21 05/31/21 Unknown History triamcinolone acetonide 0.1 % 1 applic TOPICAL BID 05/24/21 05/31/21 Unknown History topical cream lactulose 20 gram oral packet 30 ml PO .COMPLEX ea 05/31/21 05/31/21 Unknown History Allergies Allergy/AdvReac Type Severity Reaction Status Date / Time acetaminophen Allergy UNK Verified 05/31/21 10:50 amoxicillin Allergy Unknown Verified 05/31/21 10:50 Sulfa (Sulfonamide Allergy Unknown Verified 05/31/21 10:50 Antibiotics) PFSH Acute PFSH: Medical History Anxiety Bacterial arthritis of right knee CAD (coronary artery disease) CHF (congestive heart failure) Constipation 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 Essential (primary) hypertension Gout Unspecified protein-calorie malnutrition Surgical History History of coronary artery bypass graft Vitals/I&O/Wt Last Vital Signs Temp 95.4 F L 06/01/21 06:30 Pulse 79 06/01/21 06:30 Resp 28 H 06/01/21 06:30 BP 91/43 06/01/21 06:30 Pulse Ox 94 06/01/21 06:30 05/31/21 05/31/21 06/01/21 14:59 22:59 06:59 Intake Total 3510 / 3510 Output Total 200 / 200 Balance 3310 / 3310 Weight last 48 hrs Weight 114.26 kg Physical Exam Narrative: EXAM NARRATIVE: General: Currently intubated, sedated HEENT: Bilateral pupils mid dilated, no light reaction noted at this time Chest: Normal vesicular breath sounds, no added sounds, equal good air entry bilaterally CVS: S1-S2 regular, no murmurs, no tachycardia, no gallops, no rubs Abdomen: Soft, mildly distended bowel sounds present Neuro: Intubated sedated Urinary Catheter Management^: Parada: Cath Placed During This Visit: yes Reason for Continuing Indwelling Catheter: Accurate Measurement of Urinary Output in Critically Ill Patients Urinary Catheter Date of Insertion: 06/01/21 Data : 05/31/21 23:49 05/31/21 23:49 Micro: Microbiology 06/01/21 00:03 Blood Culture - Preliminary Blood SPECIMEN COLLECTED 05/31/21 23:49 Blood Culture - Preliminary Blood SPECIMEN COLLECTED A&P Assessment and plan (1) Altered mental status: Status: Acute Qualifiers: Altered mental status type: unspecified Qualified Code(s): R41.82 - Altered mental status, unspecified (2) Seizure: Status: Acute (3) Anemia: Status: Acute Qualifiers: Anemia type: unspecified type Qualified Code(s): D64.9 - Anemia, unspecified (4) Liver cirrhosis secondary to SPRINGER: Status: Acute (5) Encephalopathy, hepatic: Status: Acute (6) CAD (coronary artery disease): Status: Acute (7) CHF (congestive heart failure): Status: Acute (8) Essential (primary) hypertension: Status: Acute Additional A&P Information Patient with multiple medical comorbidities, chief being hepatic failure, known hepatic cirrhosis, hepatic encephalopathy, per history appears to be from SPRINGER, recent bacterial infection of the knee which required prolonged admission at [facility], acute kidney injury, presenting today with 2 episodes of seizures and altered mental status thereafter. Patient received 1 mg of Ativan in route, had extremely low GCS upon admission for which she was intubated for airway protection. Per subsequent discussions between the ERP and patient's and then again between me and the patient's , she states that patient has been declining in overall health over the last few months due to his multiple medical comorbidities. Per recent discussions between the patient and his family, he had made his wishes clear to his family that he did not wish to have any resuscitative measures including CPR or being on a ventilator for respiratory support. He additionally would not want any other life prolonging measures including feeding tubes. He had also stated as recently as 3 days ago that should he require rehospitalization or have critical illness again, his wishes were to be kept comfortable at the end of life. His blood pressure today is noted to be in the 70 systolic range and I have specifically discussed with the regarding need to start pressor support to maintain blood pressure and organ perfusion and also to start lactulose rectally(NG tube would be against his wishes) to bring ammonia levels down if we are to proceed with life-sustaining interventions. Again expressed multiple times in the course of discussion that patient's wishes would be just to be kept comfortable therefore plan is to transition to comfort care and await family members to come in tomorrow morning prior to extubating withdrawing ventilatory support. In keeping with these goals, we will maintain, pain control, sedation and ventilatory support while awaiting rest of the family members. Thereafter will likely transition to extubation and end-of-life care. Attestations Medical Necessity Statement*: Inpatient admission, greater than 2 midnight expected for above care Coding Level of Care Code Acute Burglar Alarm Inspector for Kathy Suresh Diagnoses Altered mental status R41.82 Altered mental status type: unspecified Seizure R56.9 Anemia D64.9 Anemia type: unspecified type Liver cirrhosis secondary to SPRINGER K75.81; K74.60 Encephalopathy, hepatic K72.90 CAD (coronary artery disease) I25.10 CHF (congestive heart failure) I50.9 Essential (primary) hypertension I10
--- NOTE | 2021-06-01 15:05 | PC.NURSE ---
Pt extubated by RT ,Pt tolerated well, oral care done. O2 @ 2lpm via NC. ,fentanyl drip DC'd per DR order. Pt family back to room to bedside.
--- NOTE | 2021-06-01 18:50 | PC.NURSE ---
mts here this am evaluated chart to notify when TOD occurs aware that family has extubated and made him comfort care today
[2021-06-01] MEDS: morphine 4 mg/mL SDV 1 mL IVP (19:28)
--- NOTE | 2021-06-01 21:42 | PC.NURSE ---
Expiration: Patient at 20:05, on comfort care with spouse and niece at bedside. Dr. Fuchs notified, two nurse pronounced, this nurse and Leah Zamora wire charger. 20:45 April at [facility] at [phone] called, and this nurse answered additional needed questions and she gave me permission to release body, ref# [id number], this was after [facility] had spoken with the Proof Reader. Orlandodavid Faizan, spouse, , # [phone], chose [facility] in [facility], contact# [phone]. 20:30 Called [facility], spoke with Beck Whitehead, informed them of family's wishes to use them. Beck Whitehead stated they would be here to slat pickler body within 2 hours.
--- NOTE | 2021-06-02 10:05 | P.PN_ITS ---
Subjective Subjective: Interval history: Admitted overnight for acute encephalopathy in setting of recent liver failure and intubated in the ER. Patient on comfort measures as per goals of care discussion with overnight. Family including , son and son's girlfriend at bedside. They confirm the goals of care discussion. CODE STATUS changed to comfort measures only. Patient terminally extubated. Vitals/I&O/Wt Last Vital Signs Temp 95.4 F L 06/01/21 06:30 Pulse 94 06/01/21 12:30 Resp 33 H 06/01/21 13:13 BP 84/39 06/01/21 12:30 Pulse Ox 94 06/01/21 13:13 06/01/21 06/01/21 06/01/21 06:59 14:59 22:59 Intake Total 3544.143 / 3544.143 1283.75 / 1283.75 Output Total 200 / 200 50 / 50 Balance 3344.143 / 3344.143 1233.75 / 1233.75 Weight last 48 hrs Weight 114.26 kg Physical Exam Narrative: EXAM NARRATIVE: Deferred given goals of care discussion Urinary Catheter Management^: Parada: Cath Placed During This Visit: yes Reason for Continuing Indwelling Catheter: Accurate Measurement of Urinary Output in Critically Ill Patients Urinary Catheter Date of Insertion: 06/01/21 Data : 05/31/21 23:49 05/31/21 23:49 Micro: Microbiology 06/01/21 03:33 Gram Stain - Final Sputum - Endotracheal Tube Aspirate 06/01/21 00:03 Blood Culture - Preliminary Blood SPECIMEN COLLECTED 05/31/21 23:49 Blood Culture - Preliminary Blood SPECIMEN COLLECTED A&P Assessment and plan (1) Altered mental status: Status: Acute Qualifiers: Altered mental status type: unspecified Qualified Code(s): R41.82 - Altered mental status, unspecified (2) Seizure: Status: Acute (3) Anemia: Status: Acute Qualifiers: Anemia type: unspecified type Qualified Code(s): D64.9 - Anemia, unspecified (4) Liver cirrhosis secondary to SPRINGER: Status: Acute (5) Encephalopathy, hepatic: Status: Acute (6) CAD (coronary artery disease): Status: Acute (7) CHF (congestive heart failure): Status: Acute (8) Essential (primary) hypertension: Status: Acute Additional A&P Information CODE STATUS changed to comfort measures status only as per goals of care discussion. No further lab work. Morphine and Ativan as needed. Terminal extubation. Family at bedside. Attestations Medical Necessity Statement*: Requires further hospitalization for comfort measures status/terminal extubation. Time Spent in Patient Care: Greater than 35 minutes (>than 50% of time spent in counselling and/or direct pt care on unit) . Coding Level of Care Code Acute Clinical Informatics Specialist for Kathy Bowersd Diagnoses Altered mental status R41.82 Altered mental status type: unspecified Seizure R56.9 Anemia D64.9 Anemia type: unspecified type Liver cirrhosis secondary to SPRINGER K75.81; K74.60 Encephalopathy, hepatic K72.90 CAD (coronary artery disease) I25.10 CHF (congestive heart failure) I50.9 Essential (primary) hypertension I10
== END 2021-06-01 23:16 | disposition expired | DRG 442 ==
LOC: ER 06-01 01:37 → ICU 06-01 03:51
PROVIDERS: Admitting Provider Student in an Organized Health Care Education/Training Program; Emergency Provider Emergency Medicine; Visit Provider Student in an Organized Health Care Education/Training Program
DX: K72.10 Chronic hepatic failure without coma (principal); N17.9 Acute kidney failure, unspecified; K75.81 Nonalcoholic steatohepatitis (NASH); K74.60 Unspecified cirrhosis of liver; F41.9 Anxiety disorder, unspecified; I25.10 Atherosclerotic heart disease of native coronary artery without angina pectoris; Z95.1 Presence of aortocoronary bypass graft; Z95.5 Presence of coronary angioplasty implant and graft; I11.0 Hypertensive heart disease with heart failure; I50.9 Heart failure, unspecified; M10.9 Gout, unspecified; D64.9 Anemia, unspecified; I95.9 Hypotension, unspecified; R56.9 Unspecified convulsions; Z51.5 Encounter for palliative care
CPT/HCPCS: 36416; 36430; 36600; 51702; 70450; 71045; 74176; 80053; 81003; 82140; 82803; 82962; 83605; 84484; 85025; 85610; 86850; 86900; 86920; 87040; 87070; 87205; 93005; 94002; 94799; 96365; 96366; 96367; 96375; 96376; 99291; 99292; J1953; J2270; J2543; J2704; J3010; J3370; J3490; J7030; J7050; P9016